=== PATIENT | male | born 1990 | race Caucasian/White ===

== ENCOUNTER 2017-09-15 12:13 | Emergency (ER) | payer BC ==
[2017-09-15 12:19] VITALS: BP 125/66; BMI 25.4
--- NOTE | 2017-09-15 13:13 | DR.GENAD ---
HPI - PCP Primary Care Physician: none - Complaint/Symptoms Chief Complaint Doctors Comments: Patient states he was jogging and rolled his left ankle about six hours ago with pain and swelling. States the pain is 2 of 10 at rest but goes to 7 of 10 when he tries to stand or walk on his left foot. He denies head injury or LOC. States he recently moved here and does not have a local doctor. States he has put ice and had his to place a tight wallace bandage on his left ankle but it continued to hurt and swell so he came to the emergency room. States he had last tetanus 6 or 7 years ago. Chief Complaint:: "rolled my left ankle running this morning" - Nurses notes reviewed Nurses Notes Review: Yes - Source History Provided: Patient - Mode of Arrival Mode of Arrival: Ambulatory - Timing Onset of Chief Complaint: 09/15/17 Came on: Suddenly - Duration Duration: Constant How lon Duration: Hours - Location Location: left ankle - Severity Severity: Moderate - Modifying Factors Worsens:: walking Improves:: rest PMH - PMH Past Medical History: No Past Surgical History: Yes Past Surgical History Comment: left hand and thum surgery right leg and right knee surgery - Family History History of Family Medical Conditions: No - Social History Does patient currently use any type of tobacco product: No Have you used tobacco products in the last 12 months: No Type of Tobacco Use: None Does any household member use tobacco: No Alcohol Use: None Do you use any recreational Drugs:: No Lives With: Family Lives Where: Home - infectious screening In the last 2 months have you had wt loss of >10#?: NO Have you had fever, night sweats or hemotysis?: No Have you traveled outside the country in the last 6 months?: No Isolation: Standard ROS - Review of Systems Constitutional: No Symptoms Reported. negative: See HPI, Chills, Diaphoresis, Fever, Malaise, Weakness, Irritable, Fatigue, Loss of Appetite, Other Eyes: No Symptoms Reported ENTM: No Symptoms Reported. negative: See HPI, Ear Pain, Ear Discharge, Pulling on Ears, Hearing Loss, Nose Pain, Nose Discharge, Epistaxis, Nose Congestion, Mouth Pain, Mouth Swelling, Loose Teeth, Drooling, Throat Pain, Throat Swelling, Ear Foreign Body Respiratoy: No Symptoms Reported. negative: See HPI, Productive Cough, Non- Productive Cough, Moist Cough, Dry Cough, Hacking Cough, Barking Cough, Brassy Cough, Orthopnea, Short of Breath, Stridor, Wheezing, Hemoptysis, Other Cardiovascular: No Symptoms Reported. negative: See HPI, Chest Pain, Edema, Palpitations, Syncope, Cyanosis, Skin Mottling, Other Gastrointestinal/Abdominal: No Symptoms Reported. negative: See HPI, Abdominal Pain, Constipation, Diarrhea, Nausea, Vomiting, Food Intolerance, Other Genitourinary: No Symptoms Reported, See HPI. negative: Discharge, Dysuria, Frequency, Hematuria, Pain, Bleeding, Other Neurological: No Symptoms Reported, Problems Walking (left ankle pain) Musculoskeletal: No Symptoms Reported, Left, Ankle (pain with swelling left ankle) Integumentary: No Symptoms Reported, Bruises (right knee with superficial abrasion one cm..). negative: See HPI, Change in Color, Change in Hair/Nails, Dryness, Lesions, Lumps, Rash, Itching, Wound, Juandice, Other Hematologic/Lymphatic: No Symptoms Reported. negative: See HPI, Anemia, Blood Clots, Easy Bleeding, Easy Bruising, Swollen Glands, Lymphadenopathy, Other Endocrine: No Symptoms Reported Psychiatric: No Symptoms Reported. negative: See HPI, Anxiety, Depression, Hallucinations, Excessive crying, Suicidal, Other PE - Vital Signs Vitals: Temperature 98.2 F Pulse Rate 70 Respiratory Rate 18 Blood Pressure 125/66 O2 Sat by Pulse Oximetry 100 - General Limitations: No Limitations General Appearance: Alert, In Distress (slight) - Head Head Exam: Normal Inspection, Atraumatic, Normocephalic - Eyes Eye exam: Normal Appearance, PERRL, EOMI. negative: Scleral Icterus, Conjunctival Injection, Nystagmus, Miosis, Mydrasis, Periorbital Swelling, Periorbital Tenderness, Other - ENT ENT Exam: Normal Exam, Normal Oropharynx, Normal External Ear Exam, Mucous Membranes Moist, TM's Normal Bilaterally External Ear Exam: Normal External Inspection TM/Canal Exam: Bilateral Normal Nose Exam: Normal Nose Exam Mouth Exam: Normal Inspection Throat Exam: Normal Inspection. negative: Tonsillar Erythema, Tonsillomegaly, Tonsillar Exudate, R Peritonsillar Mass, L Peritonsillar Mass, Muffled Voice, Other - Neck Neck Exam: Normal Inspection, Full ROM, Trachea Midline. negative: Tenderness, Meningismus, Lymphadenopathy, Thyromegaly, Other - Chest Chest Inspection: Normal Inspection, Symmetric Chest Wall Rise - Respiratory Respiratory Exam: Normal Lung Sounds Bilat Respiratory Exam: Bilateral Clear to Auscultation - Cardiovascular Cardiovascular Exam: Regular Rate, Normal Rhythm, Normal Heart Sounds. negative : Bradycardia, Tachycardia, Irregular Rhythm, Systolic Murmur, Diastolic Murmur , Rubs, Gallop, Clicks, JVD, +S1, +S2, +S3, +S4, Other - Abdominal Exam Abdominal Exam: Normal Inspection, Normal Bowel Sounds, Soft Abdominal Tenderness: negative: RUQ, RLQ, LUQ, LLQ, Epigastrium, Suprapubic, Diffuse, Mild, Moderate, Severe, Other - Extremities Extremities Exam: Normal Inspection, Full ROM, Tenderness (left ankle ankle tender), Normal Capillary Refill - Back Back Exam: Normal Inspection, Full ROM. negative: Tenderness, (R) CVA Tenderness, (L) CVA Tenderness, Muscle Spasm, Paraspinal Tenderness, Vertebral Tenderness, Rashes, (R) Sciatic Notch Tenderness, (L) Sciatic Notch Tendern, (R ) Straight Leg Raise, (L) Straight Leg Raise, Other - Neurologic Neurological Exam: Alert, Oriented X3, CN II-XII Intact, Reflexes Normal. negative: Normal Gait (gait not tested) - Psychiatric Psychiatric Exam: Normal Affect, Normal Mood. negative: Depressed, Agitated, Anxious, Flat Affect, Manic, Homicidal Ideation, Suicidal Ideation, Other - Skin Skin Exam: Warm, Dry, Intact, Normal Color ROR - Labs Reviewed Laboratory Results Reviewed?: Yes (All x-ray results reviewed and discussed with patient and ) - XRAY XRAY Interpreted by: Radiologist (Left ankle: Lateral soft tissue swelling, no fracture demonstrated) - Diagnosis Discharge Problem: Abrasion, right knee, initial encounter Moderate left ankle sprain Qualifiers: Encounter type: initial encounter Qualified Code(s): S93.402A - Sprain of unspecified ligament of left ankle, initial encounter Left ankle injury Qualifiers: Encounter type: initial encounter Qualified Code(s): S99.912A - Unspecified injury of left ankle, initial encounter - Discharge Plan Disposition: HOME, SELF-CARE Condition: Stable Prescriptions: Ibuprofen 800 mg PO TID PRN #60 tablet PRN Reason: Pain/Inflammation - Follow ups/Referrals Follow ups/Referrals: NFD,None [Primary Care Provider] - 3 days MENEDAL,CORA PARKER [STAFF PHYSICIAN] - 3 days - Instructions Instructions: Ankle Sprain, Elastic Bandage and RICE, Abrasion
[2017-09-15] MEDS ORDERED: ADACEL TDaP IM ONE ×2 (13:17→13:23)
--- NOTE | 2017-09-15 13:45 | RAD ---
Examination: Left ankle, three views History: Twisted paragraph findings: No definite fracture, dislocation or joint space asymmetry. Grimes archana, there is moderate soft tissue swelling over the lateral malleolus. Impression: Lateral soft tissue swelling, no fracture demonstrated. Reported By:
== END 2017-09-15 14:09 | disposition home or self-care (01) ==
LOC: ER 12:23
PROC: 2W3MX1Z Immobilization of Left Lower Extremity using Splint (ICD-10-PCS; principal; 2017-09-15)
DX: S80.211A Abrasion, right knee, initial encounter (principal); S93.402A Sprain of unspecified ligament of left ankle, initial encounter; S99.912A Unspecified injury of left ankle, initial encounter; M79.89 Other specified soft tissue disorders; Y33.XXXA Other specified events, undetermined intent, initial encounter; Y92.9 Unspecified place or not applicable
CPT/HCPCS: 29515; 73610; 90471; 99282